=== PATIENT | male | born 1990 | race Caucasian/White ===

== ENCOUNTER 2021-02-10 13:52 | Emergency (ER) | payer OTHER, SELFPAY ==
--- NOTE | 2021-02-10 14:04 | ED.MALEGU ---
HPI - Male Genitourinary General Chief complaint: Urogenital-Male Stated complaint: uti Time Seen by Provider: 02/10/21 14:14 Source: patient and RN notes reviewed Mode of arrival: ambulatory Limitations: no limitations History of Present Illness HPI Narrative: 30-year-old male presents with concern for dysuria, slightly increased urine frequency for 2 days. He denies penile discharge, testicle redness, swelling. Reports occasional bilateral testicle discomfort along with penile shaft discomfort. He denies abdominal pain, vomiting, diarrhea, changes in bowels. Reports he has had a new partner, does not have any confirmation of a positive STD. Denies fever, body aches, chills, sweats. MD Complaint: dysuria Related Data Allergies Allergy/AdvReac Type Severity Reaction Status Date / Time No Known Drug Allergies Allergy Other Verified 02/10/21 14:15 Review of Systems Review of Systems: Narrative: CONSTITUTIONAL: Denies malaise, chills, sweats, or fever. CARDIOVASCULAR: Denies chest pain, palpitations, or edema. RESPIRATORY: Denies cough or dyspnea. GASTROINTESTINAL: Denies abdominal pain, nausea, vomiting, diarrhea, bloody, or mucous stools. GENITOURINARY: Reports dysuria. Denies penile discharge or hematuria. SKIN: Denies lesions, rash or itching. MUSCULOSKELETAL: Denies back pain, joint pain, or myalgia. All systems reviewed & are unremarkable except as noted in HPI and below PMFSH Comments At time of signature, agree with nursing past medical, surgical, social and family history. There is no relevant family history pertinent to the presenting complaint Exam Narrative: Exam Narrative: GENERAL: Well-appearing, well-nourished, and in no acute distress. HEAD: Normocephalic. EYES: PERRLA, conjunctivae clear. NECK: Supple. No lymphadenopathy CHEST: Clear to auscultation. No respiratory distress. HEART: Regular rate and rhythm. ABDOMEN: Soft, nontender upon palpation, nondistended, normal active bowel sounds, no palpable or pulsatile masses, no guarding. No CVA tenderness SKIN: Warm, dry, no rash. NEURO: Alert and oriented x3. PSYCH: Normal mood and affect : Penis: Yes normal penis and Yes circumcised Meatus: Erythema at meatus Scrotum: scrotum normal and testes descended bilaterally Testes: Testes normal, testicular lie normal and epididymides normal Course Course Emergency Course: Patient is aware of diagnosis, understands and agrees to treatment plan. Anticipatory guidance given. Patient agrees to follow-up as directed and is aware of reasons to seek care at the emergency department. Portions of this record may have been created with voice recognition software Vital Signs Vital signs: Vital Signs Temperature 98.5 F 02/10/21 14:09 Pulse Rate 92 02/10/21 14:09 Respiratory Rate 16 02/10/21 14:09 Blood Pressure 141/94 H 02/10/21 14:09 Pulse Oximetry 100 02/10/21 14:09 Temperature 98.5 F 02/10/21 14:15 Pulse Rate 92 02/10/21 14:15 Respiratory Rate 16 02/10/21 14:15 Blood Pressure 141/94 H 02/10/21 14:15 Pulse Oximetry 100 02/10/21 14:15 Reviewed. MDM - Male Genitourinary MDM Narrative Medical decision making narrative: Exam findings and UA show no acute concerns or changes; patient is non-toxic appearing and is in no distress. Patient is appropriate for outpatient treatment and follow-up. Differential Diagnosis Differential diagnosis: Likely urinary tract infection, urethritis, epididymitis and other (STI) Lab Data Labs: Urine Glucose Negative Reference Range: Negative Urine Bilirubin Negative Reference Range: Negative Urine Ketone Negative Reference Range: Negative Urine Specific [place] 1.025 Reference Range:1.001-1.035
[2021-02-10 14:09] VITALS: BP 141/94; PULSE 92; RESP 16; TEMP 36.9; O2SAT 100
[2021-02-10 14:15] VITALS: BP 141/94; PULSE 92; RESP 16; TEMP 36.9; O2SAT 100
[2021-02-10] MEDS: LIDOCAINE HCL 1% LOCAL INJ 20 ML VIAL INFILTRATE (14:34)
[2021-02-10] MEDS: cefTRIAXone 250 MG VIAL IM (14:34)
[2021-02-10] MEDS: AZITHROMYCIN 250 MG TABLET 1000 MG PO (14:34)
== END 2021-02-10 14:55 | disposition home or self-care (01) ==
PROVIDERS: Emergency Provider Nurse Practitioner
DX: R30.0 Dysuria (principal)
CPT/HCPCS: 81003; 87491; 87591; 87661; 96372; 99213; A9270; G0463; J0696

== ENCOUNTER 2025-04-04 09:04 | Outpatient (CLI) | payer BC, SELFPAY ==
--- NOTE | ~2025-04-04 | US_ITS ---
COMPLETE ABDOMINAL ULTRASOUND Ordering provider: Harinder Chin MD History: . liver disease, proteinuria . Comparison: None. FINDINGS: LIVER: Normal size and echotexture. No focal hepatic lesions or perihepatic fluid collections are praveen ntified. GALLBLADDER: Unremarkable. No evidence for stones, sludge, gallbladder wall thickening or pericholecy stic fluid collections. Wall thicknesses 2.4 mm. A negative sonographic Tucker's sign was noted. BILIARY DUCTS: No evidence for intra or extrahepatic biliary dilation. Common bile duct measures 4 mm in diameter which is within normal limits. PANCREAS: Normal echotexture and size visualized portion. SPLEEN: Normal size, echotexture and contour and measures 5.7x12.8x 5 cm in length. KIDNEYS: Right measures 11.4x 4.9x 1.9 cm in length and the left 11.8x 5.9x 7.2 cm in length. There i s no evidence for hydronephrosis, solid renal mass, renal calculi or perinephric fluid collections. N o renal cysts. UPPER ABDOMINAL AORTA: Normal in caliber. Measures 2.3 cm. IVC: Patent. FREE FLUID: None. IMPRESSION: Unremarkable complete ultrasound of the abdomen. Reviewed, dictated and finalized at location A.
== END 2025-04-04 09:05 | disposition home or self-care (01) ==
PROVIDERS: PCP Emergency Medicine; Visit Provider Emergency Medicine
DX: K76.9 Liver disease, unspecified (principal)
CPT/HCPCS: 76700